=== PATIENT | female | born 1990 | race Caucasian/White ===

== ENCOUNTER → 2022-06-27 | Outpatient (CLI) | payer OTHER, SELFPAY ==
[2022-06-27 17:12] LABS: Hemoglobin A1c 5.1 % (3.8-5.6)
[2022-06-27 17:34] LABS: Estradiol 84.2 pg/mL; Follicle Stimulating Hormone 4.7 mIU/mL; Luteinizing Hormone 7.8 mIU/mL; T4 Free Direct 0.99 ng/dL (0.76-1.46); Thyroid Stim Hormone (TSH) 1.72 uIU/mL (0.358-3.74)
[2022-07-02 14:09] LABS: Testosterone, Free 0.35 ng/dL (0.10-0.85); Testosterone, Total 30 ng/dL (13-71)
[2022-07-02 15:50] LABS: Testosterone, % Free 1.17 % (0.50-2.80)
[2022-07-04 21:02] LABS: HPV Reflexed? NOT INDICATED
== END | disposition home or self-care (01) ==
LOC: WOBLAB 16:32
PROVIDERS: Visit Provider Nurse Practitioner Women's Health
DX: N97.9 Female infertility, unspecified (principal); Z12.4 Encounter for screening for malignant neoplasm of cervix
CPT/HCPCS: 36415; 82670; 83001; 83002; 83036; 84146; 84402; 84403; 84439; 84443; 88175; G0145

== ENCOUNTER → 2022-08-19 | Outpatient (CLI) | payer OTHER, SELFPAY ==
[2022-08-19 17:04] LABS: Progesterone Level 12.32 ng/mL (See Comment)
== END | disposition home or self-care (01) ==
LOC: WOBLAB 15:34
PROVIDERS: Visit Provider Nurse Practitioner Women's Health
DX: N97.9 Female infertility, unspecified (principal)
CPT/HCPCS: 36415; 84144